=== PATIENT | male | born 1940 | race Caucasian/White ===

== ENCOUNTER 2017-10-12 19:14 | Emergency (ER) | payer MEDICARE, OTHER ==
[2017-10-12 19:20] VITALS: BP 102/62
[2017-10-12] MEDS ORDERED: Sodium Chloride 0.9% 10 ML Syringe FLUSH PRN (20:07)
[2017-10-12] MEDS ORDERED: Sodium Chloride 0.9% 500 ML IV ONE ×2 (20:10→21:45)
[2017-10-12] MEDS ORDERED: Ondansetron 4 MG/2 ML SDV IVPUSH ONE (20:10)
--- NOTE | 2017-10-12 20:14 | EDM.PDOC ---
ED HPI GENERAL MEDICAL PROBLEM - General Source of Information: Reports: Patient History Limitations: Reports: No Limitations Upper Abdomen Pain Score (Numeric/FACES): 4 <Bal Craig - Last Filed: 10/12/17 23:35> <Krishna Vazquez - Last Filed: 10/13/17 02:04> <BrandyMarce watson - Last Filed: 10/13/17 15:51> - General Chief Complaint: Abdominal Pain Stated Complaint: [facility] Time Seen by Provider: 10/12/17 19:54 - History of Present Illness INITIAL COMMENTS - FREE TEXT/NARRATIVE: Patient 77-year-old male presents ED complaining of a two-week history of upper expiratory symptoms and cough. He was evaluated in the walk-in clinic today and had chest x-ray obtained and provided Z-Erik. In addition patient has not had a bowel movement for the past 4-5 days. He has some pain to the lower abdomen. He has a history of urinary retention and no stiff the with urinating. Has some pain intermittently with pain. States today he passed out while standing to urinate. He was able to get off the floor on his own accord with no difficulties. He is dizzy with standing. Has some intermittent chest discomfort on the left side that lasted for a few minutes with onset of dizziness. He has no chest pain at this time. He is mildly nauseated. He does have some mild body aches noted. He does have a history constipation. Denies any fever, source of breath, increased waking, increased edema to his lower extremities, orthopnea, PND, or any additional complaints. He denies any neck or back pain. No numbness or tingling to extremities. No headache. No vision changes. No weakness to the upper or lower extremities. Patient does live at home by himself. He is on no blood thinners. He's had a poor appetite as of recent. No recent sick exposures. (Bal Craig) - Related Data Allergies Allergy/AdvReac Type Severity Reaction Status Date / Time No Known Allergies Allergy Verified 10/12/17 19:23 Home Meds: Home Meds Tamsulosin [Flomax] 0.4 mg PO DAILY 10/12/17 [History] Past Medical History Cardiovascular History: Reports: Pacemaker Genitourinary History: Reports: Prostate Disorder - Past Surgical History GI Surgical History: Reports: Appendectomy, Cholecystectomy <RafaBal O - Last Filed: 10/12/17 23:35> Social & Family History - Tobacco Use Smoking Status *Q: Never Smoker - Caffeine Use Caffeine Use: Reports: Coffee, Soda - Recreational Drug Use Recreational Drug Use: No <RafaBal O - Last Filed: 10/12/17 23:35> ED ROS GENERAL - Review of Systems Review Of Systems: See Below Constitutional: Reports: Chills, Malaise, Fatigue, Decreased Appetite. Denies: Fever HEENT: Reports: Rhinitis, Sinus Problem. Denies: Ear Pain, Throat Pain Respiratory: Reports: Cough. Denies: Shortness of Breath, Wheezing, Pleuritic Chest Pain, Sputum, Hemoptysis Cardiovascular: Reports: No Symptoms GI/Abdominal: Reports: Abdominal Pain (lower abdomen), Constipation, Nausea. Denies: Diarrhea, Vomiting : Reports: Frequency, Urinary Retention Musculoskeletal: Reports: Muscle Pain (generalized) Skin: Reports: No Symptoms Neurological: Reports: Confusion (mild), Syncope. Denies: Dizziness, Headache, Numbness, Tingling, Difficulty Walking, Weakness <RafaBal O - Last Filed: 10/12/17 23:35> - Physical Exam Exam: See Below Exam Limited By: No Limitations General Appearance: Alert, WD/WN Eye Exam: Bilateral Eye: EOMI, PERRL Ears: Hearing Grossly Normal Nose: Normal Inspection Throat/Mouth: Normal Voice, No Airway Compromise, Other (Dry ORAL MUCOSA) Head Exam: Atraumatic, Normocephalic Neck: Normal Inspection, Supple, Non-Tender, Full Range of Motion Respiratory/Chest: No Respiratory Distress, Lungs Clear, Normal Breath Sounds, No Accessory Muscle Use, Chest Non-Tender Cardiovascular: Normal Peripheral Pulses, Tachycardia, Systolic Murmur GI/Abdominal: Normal Bowel Sounds, Soft, No Organomegaly, No Distention, Tender (To the lower abdomen increased with palpation ) Neuro Exam (Abbreviated): Alert, Oriented, CN II-XII Intact, Normal Cognition, No Motor/Sensory Deficits, Other (No slurred speech, no difficulty swallowing, no facial droop, no weakness to the upper or lower extremities.) Back Exam: Normal Inspection Extremities: Normal Inspection, Normal Range of Motion, Non-Tender, No Pedal Edema, Normal Capillary Refill Psychiatric: Normal Affect, Normal Mood Skin Exam: Warm, Dry, Intact, Normal Color, No Rash <Bal Craig O - Last Filed: 10/12/17 23:35> Course <Bal Craig O - Last Filed: 10/12/17 23:35> <Krishna Vazquez L - Last Filed: 10/13/17 02:04> <Marce Huber F - Last Filed: 10/13/17 15:51> - Vital Signs Last Recorded V/S: Last Vital Signs Temp 36.9 C 10/12/17 19:19 Pulse 105 H 10/12/17 19:19 Resp 20 10/12/17 19:19 BP 102/62 10/12/17 19:19 Pulse Ox 97 10/12/17 19:19 Orthostatic Blood Pressure [ 91/61 Standing] Orthostatic Blood Pressure [ 100/67 Sitting] Orthostatic Blood Pressure [ 96/62 Supine] - Orders/Labs/Meds Orders: Active Orders 24 hr Category Date Time Status EKG Documentation Completion [RC] STAT Care 10/12/17 20:07 Active Orthostatic Vital Signs [RC] ASDIRECTED Care 10/12/17 20:10 Active Peripheral IV Care [RC] . DIRECTED Care 10/12/17 20:08 Active CULTURE BLOOD [BC] Stat Lab 10/12/17 23:10 Results CULTURE BLOOD [BC] Stat Lab 10/12/17 23:15 Results CULTURE URINE [RM] Stat Lab 10/12/17 21:08 Results Blood Culture x2 Reflex Set [OM.PC] Stat Oth 10/12/17 22:19 Ordered Peripheral IV Insertion Adult [OM.PC] Stat Oth 10/12/17 20:07 Ordered Labs: Laboratory Tests 10/12/17 10/12/17 10/12/17 Range/Units 02:23 20:20 20:20 WBC 19.39 H (4.23-9.07) K/mm3 RBC 3.67 L (4.63-6.08) M/mm3 Hgb 10.9 L (13.7-17.5) gm/L Hct 31.9 L (40.1-51.0) % MCV 86.9 (79.0-92.2) fl MCH 29.7 (25.7-32.2) pg MCHC 34.2 (32.2-35.5) g/dl RDW Std Deviation 48.3 H (35.1-43.9) fL Plt Count 144 L (163-337) K/mm3 MPV 11.7 (9.4-12.3) fl Neut % (Auto) 91.5 H (34.0-67.9) % Lymph % (Auto) 2.0 L (21.8-53.1) % [place] % (Auto) 4.5 L (5.3-12.2) % Eos % (Auto) 0.1 L (0.8-7.0) Baso % (Auto) 0.1 (0.1-1.2) % Neut # (Auto) 17.75 H (1.78-5.38) K/mm3 Lymph # (Auto) 0.38 L (1.32-3.57) K/mm3 [place] # (Auto) 0.87 H (0.30-0.82) K/mm3 Eos # (Auto) 0.02 L (0.04-0.54) K/mm3 Baso # (Auto) 0.02 (0.01-0.08) K/mm3 Manual Slide Review Abnormal smear PT 12.4 (8.0-13.0) SECONDS INR 1.16 APTT (22-36) SECONDS D-Dimer, Quantitative 8.77 H (0.19-0.59) mg/L Sodium (136-145) mEq/L Potassium (3.5-5.1) mEq/L Chloride (98-107) mEq/L Carbon Dioxide (21-32) mEq/L Anion Gap (5-15) BUN (7-18) mg/dL Creatinine (0.7-1.3) mg/dL Est Cr Clr Drug Dosing mL/min Estimated GFR (MDRD) (>60) mL/min BUN/Creatinine Ratio (14-18) Glucose (83-115) mg/dL Lactic Acid (0.4-2.0) mmol/L Calcium (8.5-10.1) mg/dL Total Bilirubin (0.2-1.0) mg/dL Direct Bilirubin (0.0-0.2) mg/dl GGT (15-85) U/L AST (15-37) U/L ALT (16-63) U/L Alkaline Phosphatase (46-116) U/L CK-MB (CK-2) (0-3.6) ng/ml Troponin I (0.00-0.056) ng/mL C-Reactive Protein (<1.0) mg/dL NT-Pro-B Natriuret Pep (0-450) pg/mL Total Protein (6.4-8.2) g/dl Albumin (3.4-5.0) g/dl Globulin gm/dL Albumin/Globulin Ratio (1-2) Lipase (73-393) U/L TSH 3rd Generation (0.358-3.74) uIU/mL Urine Color (Yellow) Urine Appearance (Clear) Urine pH (5.0-8.0) Ur Specific [place] (1.005-1.030) Urine Protein (Negative) Urine Glucose (UA) (Negative) Urine Ketones (Negative) Urine Occult Blood (Negative) Urine Nitrite (Negative) Urine Bilirubin (Negative) Urine Urobilinogen (0.2-1.0) Ur Leukocyte Esterase (Negative) Urine RBC (0-5) /hpf Urine WBC (0-5) /hpf Ur Epithelial Cells (0-5) /hpf Urine Bacteria (FEW) /hpf Urine Mucus (FEW) /hpf 10/12/17 10/12/17 10/12/17 Range/Units 20:20 20:20 21:08 WBC (4.23-9.07) K/mm3 RBC (4.63-6.08) M/mm3 Hgb (13.7-17.5) gm/L Hct (40.1-51.0) % MCV (79.0-92.2) fl MCH (25.7-32.2) pg MCHC (32.2-35.5) g/dl RDW Std Deviation (35.1-43.9) fL Plt Count (163-337) K/mm3 MPV (9.4-12.3) fl Neut % (Auto) (34.0-67.9) % Lymph % (Auto) (21.8-53.1) % [place] % (Auto) (5.3-12.2) % Eos % (Auto) (0.8-7.0) Baso % (Auto) (0.1-1.2) % Neut # (Auto) (1.78-5.38) K/mm3 Lymph # (Auto) (1.32-3.57) K/mm3 [place] # (Auto) (0.30-0.82) K/mm3 Eos # (Auto) (0.04-0.54) K/mm3 Baso # (Auto) (0.01-0.08) K/mm3 Manual Slide Review PT (8.0-13.0) SECONDS INR APTT 29 (22-36) SECONDS D-Dimer, Quantitative (0.19-0.59) mg/L Sodium 139 (136-145) mEq/L Potassium 3.2 L (3.5-5.1) mEq/L Chloride 104 (98-107) mEq/L Carbon Dioxide 18 L (21-32) mEq/L Anion Gap 20.2 H (5-15) BUN 37 H (7-18) mg/dL Creatinine 1.7 H (0.7-1.3) mg/dL Est Cr Clr Drug Dosing 38.77 mL/min Estimated GFR (MDRD) 39 (>60) mL/min BUN/Creatinine Ratio 21.8 H (14-18) Glucose 107 (83-115) mg/dL Lactic Acid (0.4-2.0) mmol/L Calcium 8.6 (8.5-10.1) mg/dL Total Bilirubin 2.0 H (0.2-1.0) mg/dL Direct Bilirubin (0.0-0.2) mg/dl GGT (15-85) U/L AST 65 H (15-37) U/L ALT 55 (16-63) U/L Alkaline Phosphatase 147 H (46-116) U/L CK-MB (CK-2) (0-3.6) ng/ml Troponin I 0.067 H* (0.00-0.056) ng/mL C-Reactive Protein 24.4 H* (<1.0) mg/dL NT-Pro-B Natriuret Pep (0-450) pg/mL Total Protein 6.3 L (6.4-8.2) g/dl Albumin 2.4 L (3.4-5.0) g/dl Globulin 3.9 gm/dL Albumin/Globulin Ratio 0.6 L (1-2) Lipase 128 (73-393) U/L TSH 3rd Generation 3.558 (0.358-3.74) uIU/mL Urine Color Dark yellow (Yellow) Urine Appearance Slt cloudy H (Clear) Urine pH 5.5 (5.0-8.0) Ur Specific [place] 1.025 (1.005-1.030) Urine Protein 2+ H (Negative) Urine Glucose (UA) Negative (Negative) Urine Ketones Negative (Negative) Urine Occult Blood 1+ H (Negative) Urine Nitrite Negative (Negative) Urine Bilirubin 1+ H (Negative) Urine Urobilinogen 1.0 (0.2-1.0) Ur Leukocyte Esterase 1+ H (Negative) Urine RBC 0-5 (0-5) /hpf Urine WBC 20-30 H (0-5) /hpf Ur Epithelial Cells 0-5 (0-5) /hpf Urine Bacteria Many H (FEW) /hpf Urine Mucus Not seen (FEW) /hpf 10/12/17 10/12/17 10/12/17 Range/Units 22:05 23:10 23:10 WBC (4.23-9.07) K/mm3 RBC (4.63-6.08) M/mm3 Hgb (13.7-17.5) gm/L Hct (40.1-51.0) % MCV (79.0-92.2) fl MCH (25.7-32.2) pg MCHC (32.2-35.5) g/dl RDW Std Deviation (35.1-43.9) fL Plt Count (163-337) K/mm3 MPV (9.4-12.3) fl Neut % (Auto) (34.0-67.9) % Lymph % (Auto) (21.8-53.1) % [place] % (Auto) (5.3-12.2) % Eos % (Auto) (0.8-7.0) Baso % (Auto) (0.1-1.2) % Neut # (Auto) (1.78-5.38) K/mm3 Lymph # (Auto) (1.32-3.57) K/mm3 [place] # (Auto) (0.30-0.82) K/mm3 Eos # (Auto) (0.04-0.54) K/mm3 Baso # (Auto) (0.01-0.08) K/mm3 Manual Slide Review PT (8.0-13.0) SECONDS INR APTT (22-36) SECONDS D-Dimer, Quantitative (0.19-0.59) mg/L Sodium (136-145) mEq/L Potassium (3.5-5.1) mEq/L Chloride (98-107) mEq/L Carbon Dioxide (21-32) mEq/L Anion Gap (5-15) BUN (7-18) mg/dL Creatinine (0.7-1.3) mg/dL Est Cr Clr Drug Dosing mL/min Estimated GFR (MDRD) (>60) mL/min BUN/Creatinine Ratio (14-18) Glucose (83-115) mg/dL Lactic Acid 1.6 (0.4-2.0) mmol/L Calcium (8.5-10.1) mg/dL Total Bilirubin (0.2-1.0) mg/dL Direct Bilirubin 1.30 H (0.0-0.2) mg/dl GGT 127 H (15-85) U/L AST (15-37) U/L ALT (16-63) U/L Alkaline Phosphatase (46-116) U/L CK-MB (CK-2) (0-3.6) ng/ml Troponin I 0.367 H* (0.00-0.056) ng/mL C-Reactive Protein (<1.0) mg/dL NT-Pro-B Natriuret Pep (0-450) pg/mL Total Protein (6.4-8.2) g/dl Albumin (3.4-5.0) g/dl Globulin gm/dL Albumin/Globulin Ratio (1-2) Lipase (73-393) U/L TSH 3rd Generation (0.358-3.74) uIU/mL Urine Color (Yellow) Urine Appearance (Clear) Urine pH (5.0-8.0) Ur Specific [place] (1.005-1.030) Urine Protein (Negative) Urine Glucose (UA) (Negative) Urine Ketones (Negative) Urine Occult Blood (Negative) Urine Nitrite (Negative) Urine Bilirubin (Negative) Urine Urobilinogen (0.2-1.0) Ur Leukocyte Esterase (Negative) Urine RBC (0-5) /hpf Urine WBC (0-5) /hpf Ur Epithelial Cells (0-5) /hpf Urine Bacteria (FEW) /hpf Urine Mucus (FEW) /hpf 10/12/17 10/12/17 Range/Units 23:10 23:10 WBC (4.23-9.07) K/mm3 RBC (4.63-6.08) M/mm3 Hgb (13.7-17.5) gm/L Hct (40.1-51.0) % MCV (79.0-92.2) fl MCH (25.7-32.2) pg MCHC (32.2-35.5) g/dl RDW Std Deviation (35.1-43.9) fL Plt Count (163-337) K/mm3 MPV (9.4-12.3) fl Neut % (Auto) (34.0-67.9) % Lymph % (Auto) (21.8-53.1) % [place] % (Auto) (5.3-12.2) % Eos % (Auto) (0.8-7.0) Baso % (Auto) (0.1-1.2) % Neut # (Auto) (1.78-5.38) K/mm3 Lymph # (Auto) (1.32-3.57) K/mm3 [place] # (Auto) (0.30-0.82) K/mm3 Eos # (Auto) (0.04-0.54) K/mm3 Baso # (Auto) (0.01-0.08) K/mm3 Manual Slide Review PT (8.0-13.0) SECONDS INR APTT (22-36) SECONDS D-Dimer, Quantitative (0.19-0.59) mg/L Sodium (136-145) mEq/L Potassium (3.5-5.1) mEq/L Chloride (98-107) mEq/L Carbon Dioxide (21-32) mEq/L Anion Gap (5-15) BUN (7-18) mg/dL Creatinine (0.7-1.3) mg/dL Est Cr Clr Drug Dosing mL/min Estimated GFR (MDRD) (>60) mL/min BUN/Creatinine Ratio (14-18) Glucose (83-115) mg/dL Lactic Acid (0.4-2.0) mmol/L Calcium (8.5-10.1) mg/dL Total Bilirubin (0.2-1.0) mg/dL Direct Bilirubin (0.0-0.2) mg/dl GGT (15-85) U/L AST (15-37) U/L ALT (16-63) U/L Alkaline Phosphatase (46-116) U/L CK-MB (CK-2) 2.4 (0-3.6) ng/ml Troponin I (0.00-0.056) ng/mL C-Reactive Protein (<1.0) mg/dL NT-Pro-B Natriuret Pep 3527 H (0-450) pg/mL Total Protein (6.4-8.2) g/dl Albumin (3.4-5.0) g/dl Globulin gm/dL Albumin/Globulin Ratio (1-2) Lipase (73-393) U/L TSH 3rd Generation (0.358-3.74) uIU/mL Urine Color (Yellow) Urine Appearance (Clear) Urine pH (5.0-8.0) Ur Specific [place] (1.005-1.030) Urine Protein (Negative) Urine Glucose (UA) (Negative) Urine Ketones (Negative) Urine Occult Blood (Negative) Urine Nitrite (Negative) Urine Bilirubin (Negative) Urine Urobilinogen (0.2-1.0) Ur Leukocyte Esterase (Negative) Urine RBC (0-5) /hpf Urine WBC (0-5) /hpf Ur Epithelial Cells (0-5) /hpf Urine Bacteria (FEW) /hpf Urine Mucus (FEW) /hpf Meds: Medications Discontinued Medications Generic Name Dose Route Start Last Admin Trade Name Jordan PRN Reason Stop Dose Admin Aspirin 324 mg 10/12/17 23:50 10/13/17 00:11 Aspirin PO 10/12/17 23:51 324 mg ONETIME ONE Administration Diatrizoate Meglum/Diatrizoate Sod 90 ml 10/12/17 22:36 Gastrografin 37% PO 10/12/17 22:37 ONETIME ONE Heparin Sodium (Porcine) 5,000 units 10/12/17 23:53 10/13/17 00:11 Heparin Sodium IVPUSH 10/12/17 23:54 5,000 units ONETIME ONE Administration Sodium Chloride 500 mls @ 999 mls/hr 10/12/17 20:10 10/12/17 20:40 Normal Saline IV 02/23/18 20:40 999 mls/hr .BOLUS ONE Administration Levofloxacin/Dextrose 750 mg/ 150 mls @ 100 mls/hr 10/12/17 22:52 10/12/17 23 :15 Premix IV 10/13/17 00:21 100 mls/hr ONETIME ONE Administration Sodium Chloride 500 mls @ 250 mls/hr 10/12/17 21:45 Normal Saline IV 10/12/17 23:44 .BOLUS ONE Sodium Chloride 1,000 mls @ 150 mls/hr 10/12/17 23:30 10/12/17 23:42 Normal Saline IV 150 mls/hr ASDIRECTED LUIS E Administration Heparin Sodium/Dextrose 25,000 units in 500 mls @ 20 mls/hr 10/12/17 23:45 00:14 Heparin 25,000 Units In D5w 500 Ml IV 1,000 units/hr ASDIRECTED LUIS E 20 mls/hr 1,000 UNITS/HR Administration Nitroglycerin/Dextrose 25 mg in 250 mls @ 6 mls/hr 10/12/17 23:45 10/13/17 00 :15 Nitroglycerin 25 Mg/D5w 250 Ml IV 10 mcg/min ASDIRECTED LUIS E 6 mls/hr 10 MCG/MIN Administration Potassium Chloride 10 meq/ 100 mls @ 100 mls/hr 10/13/17 01:15 10/13/17 01:04 Premix IV 100 mls/hr ASDIRECTED LUIS E Administration Potassium Chloride Confirm 10/13/17 01:08 Kcl 10 Meq In Water 100 Ml Administered 10/13/17 01:09 Dose 100 mls @ as directed .ROUTE .STK-MED ONE Ondansetron HCl 4 mg 10/12/17 20:10 10/12/17 20:41 Zofran IVPUSH 10/12/17 20:11 4 mg ONETIME ONE Administration Sodium Chloride 10 ml 10/12/17 20:07 10/12/17 20:40 Saline Flush FLUSH 10 ml ASDIRECTED PRN Administration Keep Vein Open - Re-Assessments/Exams Free Text/Narrative Re-Assessment/Exam: Patient's blood pressure is 95 systolic with evaluation. He is mildly tachycardic. Rhythm on monitor was ventricular paced. On examination patient is mildly confused although recalls all events that occurred today he is somewhat slow to respond. He was placed on Zithromax today due to cough and runny nose that has persisted for the past 2 weeks. No testing was obtained at that time. CT is syncopal episode today while urinating. He does have some BPH issues has intermittent pain with urinating. He does have a slight headache with body achiness noted. He did obtain the flu vaccination this year. IV established by EMS. Will give the patient a 500 bolus of normal saline. He is mildly nauseated ordered Zofran 4 mg IVP. He also complains some mild discomfort to the epigastric and suprapubic region. He does have a history of BPH. He has not had a bowel movement for 4 days. States he has a history constipation. At times he does have some small amount of blood with wiping. Initial labs and studies will include CBC, chem 14, influenza screen, CRP, and coag studies, lipase, troponin, TSH, UA, abdominal series with chest x-ray, EKG. [address] Vazquez. SR with LBBB. 10/12/17 20:47 CXR and abdominal x-ray reveals increased stool within the rectum with minimally dilated large bowel. Will have nursing staff bladder scan prior to straight cathing. 10/12/17 21:02 per nursing staff with testing for orthostasis. Patient was mildly dizzy. Blood pressures ranging in the 90s to the low 100s. Heart rate unchanged with the pacemaker. IV fluids are running at this point. Bladder scan only 240 mls urine. Labs reviewed: White blood cell count 19.39, hemoglobin 10.9, platelet count 144 , neutrophil percentage is 91.5, neutrophil #17.75, sodium 139, potassium 3.2, CO2 18, hCG 20.2, by mouth and 37, creatinine 1.7, total bilirubin is 2.0, AST 65, alk phosphatase is 147, troponin 0.067, CRP 24.4, lipase 128, TSH is normal. CT the abdomen and pelvis ordered with oral contrast only. Influenza screen is negative. Repeat troponin obtained 3 hours from previous draw. 10/12/17 21:44 second bolus of normal saline will be initiated. Heart rate trending down. Blood pressure remains 94 systolic. Lactic acid pending. Blood cultures ordered. Patient remains afebrile. Lactic acid 1.6. UA did come back finally slightly cloudy, 2+ protein, occult blood 1+, bilirubin 1+, leukocyte Esterace one plus, urine wbc's 20/30, urine bacteria many. Urine culture ordered. Patient has a UTI ordered Levaquin 750 mg ordered as well. Awaiting for CT of the abdomen and pelvis study to be completed. Second troponin pending. 10/12/17 22:[address] at this point. Last vital signs blood pressure trending upward heart rate trending downward. 10/12/17 23:22 CT abdomen and pelvis impression: Possibly an inflamed gallbladder. Difficult to determine on this noncontrast study. Suggest ultrasound correlation. Large lobulated prostate gland. Correlate with exam and PSA levels. Colonic diverticulosis. [id number] spoke with semiconductor assembler hospitalist Dr. Barajas. Request results from ultrasound and second troponin be obtained prior to admission. I have also ordered a direct bilirubin in GGT.Frst bag of normal saline completed. Ordered NS 150 mls per hour. 10/12/17 23:35 Discussed patient with . He will take over care. Suggested having hernandez placed with findings concerning for urinary retention. (Bal Craig) 10/13/17 00:14 I have assumed care from physician preschool teacher assistant Mr. Bal Craig. Patient had labs pending and an ultrasound of his gallbladder ordered as requested by our hospitalist. GGT returned normal at 127. His cardiac markers however revealed a troponin I that his turned positive . Initial troponin at 2020 hrs. was 0.067. At 2310 hrs. it is 0.367. This in spite of the patient not having any complaints of chest pain. He is ill with a white count of 20,000 with a left shift which we feel is due to urosepsis due to prostatic obstruction. 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 An ultrasound of his gallbladder was performed due to suggestion on CT of the being swollen but on ultrasound it appears to be within normal limits with perhaps a small polyp on the posterior wall. There is some sludge within the gallbladder as well. Landed repeat ECG will be done at this time. Patient will be given aspirin 324 mg chewed. He will be started on a nitroglycerin drip at 10 mcg/m and will be started on heparin 5000 unit bolus then 1000 units per hour. I spoke to the patient and indicated the changes in his cardiac markers suggest that he is suffering a heart attack and that he is better served in the [facility]. He prefers to travel to [facility] where he has been in the past in [place] for care. We will make appropriate arrangements. 10/13/17 00:[address] [place] semiconductor assembler hospitalist at [facility] in [place] and she has accepted care of Mr. Barragan. He will be transported to that facility per ground ambulance from [place]. He is Levaquin infusion has been completed. He will therefore receive potassium chloride 10 mg pending the minibag over the next hour during transport. 10/13/17 01:45: Further lab tests that I had ordered are now available. BNP is elevated at 3527 CK-MB fraction is only 2.4 d-dimer is elevated at 8.77 which may be due to underlying infective process or confirm thrombus formation in his coronary arteries. (Krishna Vazquez) Free Text/Narrative Re-Assessment/Exam: 10/13/17 15:51 Lab called today and states that he had gram-negative rods in blood cultures. Patient was transferred to [facility] in [place]. Lab did call and notify them as well sent over results. (Marce Huber) Departure <Bal Craig - Last Filed: 10/12/17 23:35> - Departure Time of Disposition: 01:15 Condition: Serious <Krishna Vazquez - Last Filed: 10/13/17 02:04> <Marce Huber - Last Filed: 10/13/17 15:51> - Departure Disposition: DC/Tfer to Acute Hospital 02 Clinical Impression: Upper urinary tract infection, Lower obstructive uropathy, Prostatism, Elevated troponin I level Leukocytosis Qualifiers: Leukocytosis type: unspecified Qualified Code(s): D72.829 - Elevated white blood cell count, unspecified Acute myocardial infarction Qualifiers: Myocardial infarction type: unspecified Involved coronary artery: unspecified coronary artery Qualified Code(s): I21.9 - Acute myocardial infarction, unspecified Congestive heart failure Qualifiers: Heart failure type: unspecified Heart failure chronicity: acute on chronic Qualified Code(s): I50.9 - Heart failure, unspecified
[2017-10-12] MEDS ORDERED: Diatrizoate Meglumine/Diatrizoate Sodium 37% 120 ML Bottle PO ONE (22:36)
[2017-10-12] MEDS ORDERED: Levofloxacin/Dextrose 5%-Water 750 MG in Premix Bag 1 BAG IV ONE (22:52)
[2017-10-12] MEDS ORDERED: Sodium Chloride 0.9% 1,000 ML IV SCH (23:30)
[2017-10-12] MEDS ORDERED: Nitroglycerin/D5W 25 MG/250 ML BOTTLE IV SCH (23:45)
[2017-10-12] MEDS ORDERED: Heparin Sodium/D5W 25,000 UNITS/500 ML BAG IV SCH (23:45)
[2017-10-12] MEDS ORDERED: Aspirin 81 MG Tab.Chew PO ONE (23:50)
[2017-10-12] MEDS ORDERED: Heparin Sodium 5,000 Units/ML Vial IVPUSH ONE (23:53)
[2017-10-13] MEDS ORDERED: Potassium Chloride 100 ML ONE (01:08)
[2017-10-13] MEDS ORDERED: Potassium Chloride 10 MEQ in Premix Bag 1 BAG IV SCH (01:15)
--- NOTE | 2017-10-13 14:04 | US ---
Limited abdominal ultrasound: Multiple real-time images of the upper right abdomen were obtained. Technologist's note: Oral contrast given for CT made scan technically difficult Liver shows no focal abnormality. Gallbladder is enlarged and is filled with sludge. No definite shadowing gallstones are seen. Gallbladder wall shows some areas of mild thickening. Common bile duct measures within normal limits. Pancreas is poorly seen due to bowel gas. Portal vein shows normal hepatopedal flow. Right kidney shows no hydronephrosis or mass and has a length of 12.3 cm. Impression: 1. Distended gallbladder filled with sludge. Mild areas of gallbladder wall thickening are seen. 2. Poorly seen pancreas. 3. Other portions of the right upper quadrant abdominal ultrasound are within normal limits. Diagnostic code #3 Agree with preliminary report issued by [employer] ([employer] preliminary report dictated on 10/13/17, 1:48 AM Central Time)
--- NOTE | 2017-10-13 14:04 | CR ---
Abdominal series: Supine and upright views of the abdomen were obtained as well as frontal view of the chest. Comparison: No prior abdominal x-ray. No prior chest x-ray. Minimal atelectasis is seen within the right lung base. Lungs otherwise are clear. Heart size and mediastinum are within normal limits. Pacemaker is seen. Mild degenerative change is seen within the spine. Bowel gas pattern appears within normal limits. Several air-fluid levels are seen within the right abdomen which is within normal limits. Surgical anastomotic sutures are seen within the right lower abdomen. No free air is seen. Minimal vascular calcification and phlebolith are seen within the pelvis. Impression: 1. Incidental findings. Nothing acute is identified on abdominal series. Diagnostic code #2
--- NOTE | 2017-10-13 14:04 | CT ---
CT abdomen and pelvis Technique: Multiple axial sections were obtained from above the dome of the diaphragm inferiorly through the pubic symphysis. Oral contrast has been given. Intravenous contrast was not utilized. Comparison: No prior CT imaging. Findings: Mild atelectasis is seen within both lung bases. Gallbladder is distended without calcified gallstones being seen. Liver shows no focal abnormality. Spleen appears within normal limits. Adrenal glands show no nodule. Pancreas is within normal limits. Kidneys show no hydronephrosis or abnormal calcifications. Aorta shows atherosclerotic calcification which continues into the iliac vessels without aneurysm. No retroperitoneal adenopathy or mesenteric abnormalities are seen. Appendix not visualized. Increased stool is noted within the rectum and sigmoid colon. Prostate gland is enlarged and bilobed and impacts upon the inferior bladder floor. No free fluid or inflammatory change is seen within the abdomen or pelvis. Bone window settings show diffuse degenerative change within the spine. Impression: 1. Enlarged and bilobed prostate gland impressing upon the floor of the bladder. Please correlate with physical exam and PSA levels to make sure finding does not represent prostate carcinoma. 2. Enlarged gallbladder. 3. Increased stool within the rectum and sigmoid colon. Diagnostic code #3 Agree with preliminary report issued by [facility] ([facility]) ([facility] preliminary report dictated on 10/13/17, 12:16 AM Central Time)
== END 2017-10-13 01:15 ==
LOC: SUPCPDRO 19:14 → JD.ED 19:14 → MERGE 19:14 → UNDOADMIN 23:14 → JD.MS 23:14 → UNDODISIN 23:15
DX: I21.9 Acute myocardial infarction, unspecified (principal); I50.9 Heart failure, unspecified; N39.0 Urinary tract infection, site not specified; N40.1 Benign prostatic hyperplasia with lower urinary tract symptoms; N13.8 Other obstructive and reflux uropathy; D72.829 Elevated white blood cell count, unspecified; R79.89 Other specified abnormal findings of blood chemistry; Z90.49 Acquired absence of other specified parts of digestive tract; Z79.899 Other long term (current) drug therapy
CPT/HCPCS: 36415; 51702; 74022; 74176; 76705; 80053; 81001; 82248; 82553; 82977; 83605; 83690; 83880; 84443; 84484; 85025; 85379; 85610; 85730; 86140; 87040; 87077; 87086; 87088; 87186; 87804; 93005; 96361; 96365; 96366; 96368; 96375; 96376; 99285; A9270; J1644; J1956; J2405; J3480; J7040; J7050; Q9963; 51701